=== PATIENT | male | born 1965 | race Caucasian/White ===

== ENCOUNTER → 2024-10-28 | Day surgery (SDC) | payer MEDICAID ==
[~2024-10-28] VITALS: Ht 175.3 cm; Wt 83.9 kg
[~2024-10-28] MED LIST: BUPIVACAINE HCL 0.5% (5MG/ML) 50ML IR ONE; BUPIVACAINE HCL/PF 0.5% (5MG/ML) 10ML ONE; CEFAZOLIN SODIUM 1000MG/VIAL ONE; CLAR10 PO; EPHEDRINE SULFATE 50MG/ML VIAL ONE; FENTANYL CITRATE/PF 50MCG/ML 2ML VIAL ONE; GLYCOPYRROLATE 0.2 MG/ML 2ML VIAL ONE; HYDROMORPHONE HCL/PF 1MG/ML INJ IV PRN; LACTATED RINGERS 1,000 ML IV SCH; LIP40 PO; MIDAZOLAM HCL 2 MG/2 ML VIAL ONE; NEOSTIGMINE METHYLSULFATE 1MG/ML 10 ML VIAL ONE; ONDANSETRON HCL 4MG/2ML INJ IV PRN; ONDANSETRON HCL 4MG/2ML INJ ONE; PHENYLEPHRINE HCL 10MG/ML 1ML IV ONE; POLYMYXIN B SULFATE 500000 UNITS/VIAL ONE; PROPOFOL 200MG/20ML VIAL IV ONE; ROCURONIUM BROMIDE 10MG/ML VIAL 5ML IV ONE; SKIN ADHESIVE 0.7 GM EA TOP ONE; TAMS-11 PO; [UNRECOGNIZED DRUG - OTHER] IR ONE; [UNRECOGNIZED DRUG - SUPPLY] IR ONE
[2024-10-28] MEDS: MEPERIDINE HCL/PF 25MG/ML CPJ IV NR (09:12)
[2024-10-28] MEDS: BUPIVACAINE HCL 0.5% 175 ML in ON-Q PUMP (PM013=P270X2) IR SCH (09:42)
[2024-10-28 10:01] VITALS: BP 124/85; RESP 13
[2024-10-28] MEDS: ACETAMINOPHEN WITH CODEINE 300/30MG TABLET PO SCH (10:01)
[2024-10-28 10:53] VITALS: PULSE 72
[2024-10-28] MEDS: TAMSULOSIN HCL 0.4MG SR CAPSULE PO NR (10:53)
== END | disposition home or self-care (01) ==
LOC: OR 06:08
PROVIDERS: ATTEND Surgery
DX: K40.90 Unilateral inguinal hernia, without obstruction or gangrene, not specified as recurrent (principal); E78.5 Hyperlipidemia, unspecified; Z87.891 Personal history of nicotine dependence; Z79.899 Other long term (current) drug therapy; Z98.890 Other specified postprocedural states
CPT/HCPCS: 49505; J3010; J0665; J3490 ×5; J0690; J2250; J2405; J2704; J2175; A4663; J2710; C1781